=== PATIENT | male | born 1970 | race Caucasian/White ===

== ENCOUNTER 2017-08-23 15:21 | Emergency (ER) | payer MEDICARE ==
[~2017-08-23] VITALS: Ht 170.2 cm; Wt 86.2 kg
[~2017-08-23 15:21] MED LIST: ACE500 PO; ALBU8.5H12 IH; AMLO-96 PO; AMOX-559 PO; AMOX875T60 PO; AMPH10TA20 PO; AMPH30TA10 PO; AMPH5CAP9 PO; ARIP300S IM; ARIP5TAB28 PO; ASCO-191 PO; ASPI-715 PO; BEN5 PO; BENA1TAB57 PO; BUPR-474 PO; BUPXL150 PO; CAR100 PO; CAR200 PO; CEP500 PO; CEPH250C37 PO; CEPH500C24 PO; CHOL10005 PO; CHOLESTEROL MED PO; CLIN300C99 PO; CYAN50006 IM; CYCL10TA29 PO; DES100PT PO; DESV50TA9 PO; DOC100 PO; DOCU-416 PO; DOXY-181 PO; DULO60CA56 PO; EPIN0.3P3 IM; FAM20 PO; FERR325T3 PO; FLU100 PO; GEM600 PO; GEMF600T89 PO; HYDR-319 PO; HYDR-393 PO; HYDR-4305 PO; HYDR-4309 PO; HYDR12.558 PO; HYDR25 PO; HYDR28.426 TP; HYDR473S4 PO; IBU800 PO; IPRA4AER IH; LAMOT150PT PO; LEV500 PO; LISI-1 PO; LISI-355 PO; LITH600C6 PO; LOR5/325 PO; LURA60TA; MET10 PO; MET500 PO; METH36TA11 PO; MOXI400T28 PO; MULT-1210 PO; MULT-1335 PO; MULT-1367 PO; NOR5/325 PO; OMEP10CA38 PO; OXYC-689 PO; OXYC-763 PO; OXYC-823 PO; OXYC-865 PO; PAN40 PO; PANT40SU3 PO; PANT40TA65 PO; PER PO; PHENA200 PO; PRE20 PO; PRED-1 PO; PRED20TA6 PO; ROBC PO; SUC1 PO; TADA5TAB7 PO; TAM4 PO; TAMS0.4C25 PO; TAMS0.4C76 PO; TOPI25TA PO; TOPI25TA3 PO; VENL25TA29 PO; VIT B 1; VIT B12; VIVANZ; [UNRECOGNIZED DRUG - CODE] FT; [UNRECOGNIZED DRUG - CODE] GT; [UNRECOGNIZED DRUG - CODE] PO; [UNRECOGNIZED DRUG - OTHER]
[2017-08-23] MEDS ORDERED: IBUP-1671 PO (15:33)
--- NOTE | 2017-08-23 15:45 | ER Report ---
History and Physical Time Seen By MD: 15:44 Hx. of Stated Complaint: [facility] HAS HAD TARRY STOOL THIS PAST WEEK. BURNING IN ABD HPI/ROS CHIEF COMPLAINT: Rectal bleeding. HISTORY OF PRESENT ILLNESS: 46-year-old male patient presents to emergency room with complaint of rectal bleeding. Patient states for the past week he has been having black tarry stools. Patient states that he is noticed that he is feeling more fatigued over the past few days. He states he's had several bouts of vomiting as well. He states that he did call his primary care provider office today who stated that he should go to the emergency room for immediate evaluation. He states has not had any recent changes in his medications. He states that he is on several of her medications at this time. He denies having any fevers, chills. REVIEW OF SYSTEMS: Respiratory: No cough, no dyspnea. Cardiovascular: No chest pain, no palpitations. Gastrointestinal: As noted above Musculoskeletal: No back pain. Allergies: Coded Allergies: latex (Verified Allergy, Severe, RASH ITCHING, EYES SWELL, 08/23/17) Home Meds Active Scripts Sulfamethoxazole/Trimet 800-160 Mg Tab (BACTRIM DS TABLET) 1 Each Tablet, 1 TAB PO Q12H, #14 TAB Prov:VALENTINE MONTANO 08/23/17 Sucralfate (CARAFATE) 1 Gm Tablet, 1 GM PO QID, #60 TAB Take before meals and at bedtime. Crush the tablet and mix with water before taking. Prov:VALENTINE MONTANO 08/23/17 Pantoprazole Sodium (PANTOPRAZOLE SODIUM) 40 Mg Tablet.dr, 40 MG PO BID, #30 TAB.SR Prov:VALENTINE MONTANO 08/23/17 Epinephrine (EPINEPHRINE) 0.3 Mg/0.3 Ml Pen.injctr, 0.3 MG IM PRN Y for ALLERGY SYMPTOMS, #1 SYR 1 Refill Prov:CHARANJIT HERBERT MD 07/20/17 Tamsulosin Hcl (FLOMAX) 0.4 Mg Cap.er.24h, 0.4 MG PO BID, #60 CAP 3 Refills Prov:CHARANJIT HERBERT MD 05/30/17 Pantoprazole Sodium (PANTOPRAZOLE SODIUM) 40 Mg Tablet.dr, 1 TAB PO QDAY, #30 TAB.SR 0 Refills patient must see provider for further refills Prov:CHARANJIT HERBERT MD 02/25/17 Fenofibrate,Micronized (LOFIBRA) 67 Mg Capsule, 1 CAP PO QHS, #90 CAPSULE 4 Refills Prov:CHARANJIT HERBERT MD 09/27/16 Albuterol Sul Hfa 90 Mcg 8 Gm (VENTOLIN HFA 90 MCG 8 GM) 8.5 Gm Hfa.aer.ad, 2 PUFF IH Q4-6H Y for airway spasm, #1 INHALER Prov:CRISTYSHIRA M DO 04/27/15 Reported Medications Ibuprofen (MOTRIN IB) 200 Mg Tablet, 6-8 TAB PO Q6-8HDAILY 08/23/17 Cholecalciferol (Vitamin D3) (VITAMIN D3) 1,000 Unit Tablet, 1 TAB PO QDAY, TAB 04/28/16 Aripiprazole (ABILIFY MAINTENA) 300 Mg Suser.vial, 400 MG IM Q month 03/18/16 Bupropion Hcl (WELLBUTRIN XL) 300 Mg Tab.er.24h, 300 MG PO BID, TAB 03/18/16 Amphet Asp/Amphet/D-Amphet (ADDERALL 30 MG TABLET) 30 Mg Tablet, 30 MG PO BID 09/25/15 [place] Carbonate (LITHIUM CARBONATE) 600 Mg Capsule, 600 MG PO TID, CAPSULE TAKES 1 IN AM AND TWO AT HS 09/25/15 Cyanocobalamin (Vitamin B-12) (B-12) 5,000 Mcg/1 Ml Drops, 5000 MCG IM MONTH 04/27/15 Ascorbic Acid (VITAMIN C) 1,000 Mg Tablet, 1000 MG PO 09/24/13 Past Medical/Surgical History Patient has a past medical history of hypertension, hyperlipidemia, reflux, liver disease, testicular pain, kidney stones, acute renal failure, BPH, arthritis, tib-fib fracture, removal for objects from throat, recovering alcoholic, drug addict, bipolar, suicide attempt. Patient has a surgical history of gastric bypass, hernia repair, tib-fib surgery , back surgery, adenoidectomy. Patient has a family medical history of CAD, stroke, diabetes, psychiatric problems. Reviewed Nurses Notes: Yes Hx Smoking: Yes (1-2ppd) Smoking Status: Current: Every Day Smoker Exposure to Second Hand Smoke?: No Hx Substance Use Disorder: No (RECOVERING ACLOHOLIC & DRUG ADDICT SINCE 2004) Hx Alcohol Use: No Constitutional Vital Sign - Last 24 Hours 08/23/17 08/23/17 08/23/17 08/23/17 15:27 15:30 16:00 16:30 Temp 98.1 Pulse 78 Resp 20 B/P (MAP) 148/96 101/64 (76) 99/59 (72) 91/76 (81) Pulse Ox 98 O2 Delivery Room Air 08/23/17 17:00 B/P (MAP) 91/60 (70) Physical Exam General Appearance: The patient is alert, has no immediate need for airway protection and no current signs of toxicity. Respiratory: Chest is non tender, lungs are clear to auscultation. Cardiac: regular rate and rhythm Gastrointestinal: Abdomen is soft and non tender, no masses, bowel sounds normal. Musculoskeletal: Neck: Neck is supple and non tender. Extremities have full range of motion and are non tender. Skin: No rashes or lesions. DIFFERENTIAL DIAGNOSIS: After history and physical exam differential diagnosis was considered for GI bleed, anemia, hypovolemia. Medical Decision Making Data Points Result Diagram: 08/23/17 1629 08/23/17 1629 Laboratory Hematology Test 08/23/17 15:53 08/23/17 15:55 08/23/17 16:29 Stool Occult Blood (IFOB) Negative (NEGATIVE) Urine Color Yellow Urine Clarity Slightly-cloudy Urine pH 6.0 pH (4.8-9.5) Urine Specific [place] 1.018 Urine Protein 30 mg/dL (NEGATIVE) Urine Glucose (UA) Negative mg/dL (NEGATIVE) Urine Ketones Negative mg/dL (NEGATIVE) Urine Blood Negative (NEGATIVE) Urine Nitrite Negative (NEGATIVE) Urine Bilirubin Negative (NEGATIVE) Urine Urobilinogen Negative mg/dL (0.2-1.9) Urine Leukocyte Esterase Small (NEGATIVE) Urine RBC 1 /HPF (0-2/HPF) Urine WBC 5 /HPF (0-5/HPF) Urine Squamous Epithelial Cells None /LPF (</=FEW) Urine Bacteria Few /HPF (NONE-FEW) Urine Mucus Few /HPF (NONE-FEW) Red Blood Count 3.71 M/uL (4.00-5.60) Mean Corpuscular Volume 91.1 fL (80.0-96.0) Mean Corpuscular Hemoglobin 31.6 pg (26.0-33.0) Mean Corpuscular Hemoglobin Concent 34.7 g/dL (32.0-36.0) Red Cell Distribution Width 13.3 % (11.5-14.5) Mean Platelet Volume 6.8 fL (7.2-11.1) Neutrophils (%) (Auto) 70.6 % (39.4-72.5) Lymphocytes (%) (Auto) 19.9 % (17.6-49.6) Monocytes (%) (Auto) 5.1 % (4.1-12.4) Eosinophils (%) (Auto) 3.5 % (0.4-6.7) Basophils (%) (Auto) 0.9 % (0.3-1.4) Nucleated RBC Relative Count (auto) 0.0 /100WBC Neutrophils # (Auto) 7.8 K/uL (2.0-7.4) Lymphocytes # (Auto) 2.2 K/uL (1.3-3.6) Monocytes # (Auto) 0.6 K/uL (0.3-1.0) Eosinophils # (Auto) 0.4 K/uL (0.0-0.5) Basophils # (Auto) 0.1 K/uL (0.0-0.1) Nucleated RBC Absolute Count (auto) 0.00 K/uL Sodium Level 136 mmol/L (137-145) Potassium Level 3.8 mmol/L (3.5-5.0) Chloride Level 104 mmol/L (98-107) Carbon Dioxide Level 26 mmol/L (22-30) Blood Urea Nitrogen 23 mg/dl (9-21) Creatinine 0.90 mg/dl (0.66-1.25) Glomerular Filtration Rate Calc > 60.0 Random Glucose 83 mg/dl (75-110) Calcium Level 9.1 mg/dl (8.4-10.2) Total Bilirubin 0.3 mg/dl (0.2-1.3) Aspartate Amino Transf (AST/SGOT) 26 U/L (0-35) Alanine Aminotransferase (ALT/SGPT) 31 U/L (0-56) Alkaline Phosphatase 50 U/L (0-126) Total Protein 6.1 gm/dl (6.3-8.2) Albumin 3.6 g/dl (3.5-5.0) Amylase Level 72 U/L (0-110) Lipase 136 U/L (23-300) Chemistry Test 08/23/17 15:53 08/23/17 15:55 08/23/17 16:29 Stool Occult Blood (IFOB) Negative (NEGATIVE) Urine Color Yellow Urine Clarity Slightly-cloudy Urine pH 6.0 pH (4.8-9.5) Urine Specific [place] 1.018 Urine Protein 30 mg/dL (NEGATIVE) Urine Glucose (UA) Negative mg/dL (NEGATIVE) Urine Ketones Negative mg/dL (NEGATIVE) Urine Blood Negative (NEGATIVE) Urine Nitrite Negative (NEGATIVE) Urine Bilirubin Negative (NEGATIVE) Urine Urobilinogen Negative mg/dL (0.2-1.9) Urine Leukocyte Esterase Small (NEGATIVE) Urine RBC 1 /HPF (0-2/HPF) Urine WBC 5 /HPF (0-5/HPF) Urine Squamous Epithelial Cells None /LPF (</=FEW) Urine Bacteria Few /HPF (NONE-FEW) Urine Mucus Few /HPF (NONE-FEW) White Blood Count 11.1 k/uL (4.5-11.0) Red Blood Count 3.71 M/uL (4.00-5.60) Hemoglobin 11.7 g/dL (14.0-18.0) Hematocrit 33.8 % (42.0-52.0) Mean Corpuscular Volume 91.1 fL (80.0-96.0) Mean Corpuscular Hemoglobin 31.6 pg (26.0-33.0) Mean Corpuscular Hemoglobin Concent 34.7 g/dL (32.0-36.0) Red Cell Distribution Width 13.3 % (11.5-14.5) Platelet Count 301 K/uL (150-450) Mean Platelet Volume 6.8 fL (7.2-11.1) Neutrophils (%) (Auto) 70.6 % (39.4-72.5) Lymphocytes (%) (Auto) 19.9 % (17.6-49.6) Monocytes (%) (Auto) 5.1 % (4.1-12.4) Eosinophils (%) (Auto) 3.5 % (0.4-6.7) Basophils (%) (Auto) 0.9 % (0.3-1.4) Nucleated RBC Relative Count (auto) 0.0 /100WBC Neutrophils # (Auto) 7.8 K/uL (2.0-7.4) Lymphocytes # (Auto) 2.2 K/uL (1.3-3.6) Monocytes # (Auto) 0.6 K/uL (0.3-1.0) Eosinophils # (Auto) 0.4 K/uL (0.0-0.5) Basophils # (Auto) 0.1 K/uL (0.0-0.1) Nucleated RBC Absolute Count (auto) 0.00 K/uL Glomerular Filtration Rate Calc > 60.0 Calcium Level 9.1 mg/dl (8.4-10.2) Total Bilirubin 0.3 mg/dl (0.2-1.3) Aspartate Amino Transf (AST/SGOT) 26 U/L (0-35) Alanine Aminotransferase (ALT/SGPT) 31 U/L (0-56) Alkaline Phosphatase 50 U/L (0-126) Total Protein 6.1 gm/dl (6.3-8.2) Albumin 3.6 g/dl (3.5-5.0) Amylase Level 72 U/L (0-110) Lipase 136 U/L (23-300) Urinalysis Test 08/23/17 15:55 Urine Color Yellow Urine Clarity Slightly-cloudy Urine pH 6.0 pH (4.8-9.5) Urine Specific [place] 1.018 Urine Protein 30 mg/dL (NEGATIVE) Urine Glucose (UA) Negative mg/dL (NEGATIVE) Urine Ketones Negative mg/dL (NEGATIVE) Urine Blood Negative (NEGATIVE) Urine Nitrite Negative (NEGATIVE) Urine Bilirubin Negative (NEGATIVE) Urine Urobilinogen Negative mg/dL (0.2-1.9) Urine Leukocyte Esterase Small (NEGATIVE) Urine RBC 1 /HPF (0-2/HPF) Urine WBC 5 /HPF (0-5/HPF) Urine Squamous Epithelial Cells None /LPF (</=FEW) Urine Bacteria Few /HPF (NONE-FEW) Urine Mucus Few /HPF (NONE-FEW) EKG/Imaging Imaging EXAMINATION: AP abdomen HISTORY: Abdominal pain. COMPARISON: None. FINDINGS: Nonobstructive bowel gas pattern, with air scattered throughout normal-caliber loops of small bowel and colon. Moderate volume of scattered colonic stool. Surgical clips in the mid and upper left abdomen with mesh material along the lower abdominal wall. No evidence of organomegaly or abnormal calcification. Visualized lung bases are clear. No acute osseous findings. Surgical changes in the lower lumbar spine with prior L5 laminectomy. IMPRESSION: Nonobstructive bowel gas pattern, with a moderate volume of colonic stool. Report Dictated By: Melo Mccall MD at 08/23/2017 4:41 PM Report E-Signed By: Melo Mccall MD at 08/23/2017 4:44 PM ED Course/Re-evaluation ED Course Patient was admitted to exam room, history and physical were obtained. Differential diagnoses were considered. On examination patient had no abdominal tenderness, patient had a blood pressure 101/64. An IV was started, patient received a liter of normal saline, acute abdominal x-ray was done, a CBC, CMP, urinalysis, occult stool. Patient had an H&H of 11 and 33. It is down a little bit from his normal. Patient is normally running around 15. The occult stool was negative. A CMP was unremarkable. However the patient did have a positive urinalysis. He had 5 white cells per high-power field as well as leukocyte esterase. I discussed the findings with the patient and his . I did call and talk with Dr. Dickey, general surgeon to see about getting an appointment made. He was unable to see the patient tomorrow, however was able to make an appointment for Tuesday at 9. I discussed this with patient and his . We will go ahead and have him increase his Protonix to 40 mg twice a day, as well as 1 g of Carafate 4 times a day. We will also treat the urinary tract infection with Bactrim. An order was made for a urine culture. Patient will be discharged at this time. Decision to Disposition Date: Aug 23, 2017 Decision to Disposition Time: 17:17 Depart Departure Latest Vital Signs Vital Signs Date Time Temp Pulse Resp B/P (MAP) Pulse Ox O2 Delivery O2 Flow Rate FiO2 08/23/17 17:00 91/60 (70) 08/23/17 15:27 98.1 78 20 98 Room Air Impression: Primary Impression: GI bleed Additional Impression: UTI (urinary tract infection) Condition: Improved Disposition: HOME OR SELF-CARE Referrals: CHARANJIT HERBERT MD (PCP) New Scripts Sulfamethoxazole/Trimet 800-160 Mg Tab (BACTRIM DS TABLET) 1 Each Tablet 1 TAB PO Q12H, #14 TAB Prov: VALENTINE MONTANOP 08/23/17 Sucralfate (CARAFATE) 1 Gm Tablet 1 GM PO QID, #60 TAB Take before meals and at bedtime. Crush the tablet and mix with water before taking. Prov: VALENTINE MONTANO 08/23/17 Pantoprazole Sodium (PANTOPRAZOLE SODIUM) 40 Mg Tablet.dr 40 MG PO BID, #30 TAB.SR Prov: VALENTINE MONTANOP 08/23/17 Patient Instructions: Gastrointestinal Bleeding (ED) Additional Instructions: Increase fluid intake. Get plenty of rest. Follow up with Dr. Dickey, you have an appointment on Tuesday at 9:00. Don't take any Ibuprofen, Aleve or other NSAIDs. Return to the ER if condition worsens. Follow up with your primary care provider in the next week for repeat urinalysis. Problem Qualifiers Primary Impression: GI bleed GI bleed type/associated pathology: unspecified gastrointestinal hemorrhage type Qualified Codes: K92.2 - Gastrointestinal hemorrhage, unspecified Additional Impression: UTI (urinary tract infection) Urinary tract infection type: acute cystitis Hematuria presence: without hematuria Qualified Codes: N30.00 - Acute cystitis without hematuria VALENTINE MONTANO Aug 23, 2017 15:45
[2017-08-23] MEDS ORDERED: NS(*) 0.9% 1000 ML BAG 1,000 ML IV ONE (16:03)
[2017-08-23 16:45] LABS: PLATELET COUNT, AUTOMATED 301 K/uL (150-450)
--- NOTE | 2017-08-23 16:49 | RADIOLOGY IMAGING REPORT ---
FACILITY: [facility] - [place] PATIENT NAME: Boris Arriola : 1970 MR: [id number] V: [id number] EXAM DATE: ORDERING PHYSICIAN: VALENTINE MONTANO TECHNOLOGIST: Location: [facility] Patient: Boris Arriola : 1970 Visit/Account:[id number] Date of Sevice: 08/23/2017 EXAMINATION: AP abdomen HISTORY: Abdominal pain. COMPARISON: None. FINDINGS: Nonobstructive bowel gas pattern, with air scattered throughout normal-caliber loops of small bowel a nd colon. Moderate volume of scattered colonic stool. Surgical clips in the mid and upper left abdomen with mesh material along the lower abdominal wall. No evidence of organomegaly or abnormal calcification. Visualized lung bases are clear. No acute osseous findings. Surgical changes in the lower lumbar spine with prior L5 laminectomy. IMPRESSION: Nonobstructive bowel gas pattern, with a moderate volume of colonic stool. Report Dictated By: Melo Mccall MD at 08/23/2017 4:41 PM Report E-Signed By: Melo Mccall MD at 08/23/2017 4:44 PM [id number]
[2017-08-23 17:00] VITALS: BP 91/60
[2017-08-23] MEDS ORDERED: PANT40TA65 PO (17:16)
[2017-08-23] MEDS ORDERED: SUCR1TAB85 PO (17:16)
[2017-08-23] MEDS ORDERED: SULF-198 PO (17:25)
[2017-08-26] MEDS ORDERED: OXYC-854 PO (09:40)
[2017-08-26] MEDS ORDERED: SUCR1TAB85 PO (09:40)
[2017-08-26] MEDS ORDERED: PANT40TA65 PO (09:40)
[2017-08-26] MEDS ORDERED: GOLYTE PO (09:41)
== END 2017-08-23 17:30 | disposition home or self-care (01) ==
LOC: ER 15:34
DX: K92.2 Gastrointestinal hemorrhage, unspecified (principal); N30.00 Acute cystitis without hematuria
CPT/HCPCS: 74018; 81001; 82150; 82274; 83690; 85025; 99284; J7030; 82040; 82247; 82310; 82374; 82435; 82565; 82947; 84075; 84132; 84155; 84295; 84450; 84460; 84520

== ENCOUNTER 2017-09-07 04:08 | Day surgery (SDC) | payer MEDICARE ==
[~2017-09-07] VITALS: Ht 170.2 cm; Wt 87.1 kg
[~2017-09-07 04:08] MED LIST changes: +GOLYTE PO; +IBUP-1671 PO; +OXYC-854 PO; +SUCR1TAB85 PO; +SULF-198 PO
[2017-09-07] MEDS ORDERED: GLYCOPYRROLATE 1 MG/5 ML INJ IVP ONE (07:00)
[2017-09-07] MEDS ORDERED: LIDOCAINE MPF 1% 5 ML VIAL ONE (09:35)
[2017-09-07] MEDS ORDERED: PROPOFOL EMUL(*) 10MG/ML 20 ML 40 ML ONE (09:35)
[2017-09-07] MEDS ORDERED: PROPOFOL EMUL(*) 10MG/ML 20 ML 20 ML ONE (10:54)
[2017-09-07 11:05] VITALS: BP 110/66
[2017-09-07] MEDS ORDERED: MIDAZOLAM 2 MG/2 ML VIAL IVP PRN (12:00)
[2017-09-07] MEDS ORDERED: NORMOSOL R SOLN(*) 1000 ML BAG 1,000 ML IV PRN (12:00)
[2017-09-07] MEDS ORDERED: LIDOCAINE/SOD BICARB 8.4% SYR ID ONE (12:00)
[2017-09-07 12:23] VITALS: BP 101/57
[2017-09-07 12:30] VITALS: BP 101/55
--- NOTE | 2017-09-07 12:34 | Short(Outpt) Discharge Summary ---
Discharge Summary Reason for Hosp/Final Diag: (1) GI bleed Status: Chronic Hospital Course & Plan: EGD with biopsies and colonoscopy completed without problems although his bowel prep was unacceptably poor. (2) History of ulcer disease Status: Chronic Departure Discharge to: Home, Self Care Discharge Instructions Home Meds Active Scripts Peg/Electrolytes (GOLYTELY SOLUTION) 4,000 Ml Soln, 1 GAL PO ONCE, #1 GAL 0 Refills Prov:CHERYL IZQUIERDO MD 08/26/17 Oxycodone Hcl/Acet 5/325 Mg (ENDOCET 5-325 TABLET) 1 Each Tablet, 1-2 TAB PO Q4H Y for PAIN, #40 TAB 0 Refills Prov:CHERYL IZQUIERDO MD 08/26/17 Sucralfate (CARAFATE) 1 Gm Tablet, 1 TAB PO ACHS, #60 TAB Take before meals and at bedtime. Crush the tablet and mix with water before taking. Prov:CHERYL IZQUIERDO MD 08/26/17 Pantoprazole Sodium (PANTOPRAZOLE SODIUM) 40 Mg Tablet.dr, 1 TAB PO BIDAC, #60 TAB.SR 4 Refills Don't eat 2 hours before or 30 minutes after taking Prov:CHERYL IZQUIERDO MD 08/26/17 Sulfamethoxazole/Trimet 800-160 Mg Tab (BACTRIM DS TABLET) 1 Each Tablet, 1 TAB PO Q12H, #14 TAB Prov:VALENTINE MONTANO 08/23/17 Epinephrine (EPINEPHRINE) 0.3 Mg/0.3 Ml Pen.injctr, 0.3 MG IM PRN Y for ALLERGY SYMPTOMS, #1 SYR 1 Refill Prov:CHARANJIT HERBERT MD 07/20/17 Tamsulosin Hcl (FLOMAX) 0.4 Mg Cap.er.24h, 0.4 MG PO BID, #60 CAP 3 Refills Prov:CHARANJIT HERBERT MD 05/30/17 Fenofibrate,Micronized (LOFIBRA) 67 Mg Capsule, 1 CAP PO QHS, #90 CAPSULE 4 Refills Prov:CHARANJIT HERBERT MD 09/27/16 Albuterol Sul Hfa 90 Mcg 8 Gm (VENTOLIN HFA 90 MCG 8 GM) 8.5 Gm Hfa.aer.ad, 2 PUFF IH Q4-6H Y for airway spasm, #1 INHALER Prov:SHIRA MUNIZ DO 04/27/15 Reported Medications Cholecalciferol (Vitamin D3) (VITAMIN D3) 1,000 Unit Tablet, 1 TAB PO QDAY, TAB 04/28/16 Aripiprazole (ABILIFY MAINTENA) 300 Mg Suser.vial, 400 MG IM Q month 03/18/16 Bupropion Hcl (WELLBUTRIN XL) 300 Mg Tab.er.24h, 300 MG PO BID, TAB 03/18/16 Amphet Asp/Amphet/D-Amphet (ADDERALL 30 MG TABLET) 30 Mg Tablet, 30 MG PO BID 09/25/15 [place] Carbonate (LITHIUM CARBONATE) 600 Mg Capsule, 600 MG PO TID, CAPSULE TAKES 1 IN AM AND TWO AT HS 09/25/15 Ascorbic Acid (VITAMIN C) 1,000 Mg Tablet, 1000 MG PO 09/24/13 Discontinued Reported Medications Cyanocobalamin (Vitamin B-12) (B-12) 5,000 Mcg/1 Ml Drops, 5000 MCG IM MONTH 04/27/15 Follow up Referrals: General Surgery - In Two Weeks @ Surgery, General with Cheryl Izquierdo Md Diet: Regular Activity: As Tolerated Special Instructions: Your upper endoscopy and colonoscopy were completed without any problems but your colon prep was not good and I couldn't see the lining of your colon very well due to the amount of stool that remained in your colon. There was no blood in your esophagus, stomach, jejunum, or colon. Radha, my nurse kira call you in the next couple of days to schedule a follow up appointment. Problem Qualifiers (1) GI bleed: GI bleed type/associated pathology: unspecified gastrointestinal hemorrhage type Qualified Codes: K92.2 - Gastrointestinal hemorrhage, unspecified CHERYL IZQUIERDO MD Sep 07, 2017 12:34
[2017-09-07 12:59] VITALS: BP 93/66
[2017-09-07 13:00] VITALS: BP 100/62
[2017-09-07 13:03] VITALS: BP 106/64
== END 2017-09-07 13:20 | disposition home or self-care (01) ==
LOC: OR 04:08
PROVIDERS: ATTEND Surgery
DX: R04.2 Hemoptysis (principal); R10.13 Epigastric pain; R10.84 Generalized abdominal pain; K92.1 Melena
CPT/HCPCS: 43239; 45378; 87077; J2001; J2704; J3490

== ENCOUNTER → 2018-01-05 | Outpatient (CLI) | payer MEDICARE ==
[~2018-01-05] MED LIST changes: -BEN5 PO; +BENZ0.5T19 PO
[2018-01-05 10:12] LABS: LDL CHOLESTEROL 70 mg/dl
== END ==
LOC: LAB 09:44
PROVIDERS: ATTEND Clinical Nurse Specialist Family Health
DX: Z13.1 Encounter for screening for diabetes mellitus (principal)
CPT/HCPCS: 36415; 82040; 82247; 82310; 82374; 82435; 82465; 82565; 82947; 83036; 83718; 84075; 84132; 84155; 84295; 84450; 84460; 84478; 84520

== ENCOUNTER → 2018-02-14 | Outpatient (CLI) | payer OTHER, MEDICARE ==
[~2018-02-14] MED LIST changes: +FENO67CA3 PO
--- NOTE | 2018-02-14 15:27 | RADIOLOGY IMAGING REPORT ---
FACILITY: [facility] - [place] PATIENT NAME: Boris Arriola : 1970 MR: [id number] V: [id number] EXAM DATE: ORDERING PHYSICIAN: IGOR HAYES TECHNOLOGIST: Location: [facility] [place] Patient: Boris Arriola : 1970 Visit/Account:[id number] Date of Sevice: 02/14/2018 EXAMINATION: MRI Lumbar spine without intravenous contrast HISTORY: Low back pain radiating into the right leg. COMPARISON: 04/28/2017. TECHNIQUE: Multi-planar, multi-sequence lumbar spine MRI was performed without intravenous contrast administration. FINDINGS: Alignment: Stable anterior listhesis of L4 over L5 measuring 5 mm. Stable minimal retrolisthesis of L 3 over L4. Vertebral marrow signal: Stable Schmorl's node in the superior L1 vertebral body. Otherwise negative. Distal thoracic cord: Negative. Conus: negative, terminates at L1-L2 Cauda equina: Negative. Paravertebral soft tissues: Postsurgical changes. Otherwise negative. Visualized abdominal and pelvic structures: Negative. Disc Spaces: Lower thoracic spine: Mild degenerative changes with no significant stenosis. No significant change. L1-2: Mild circumferential disc bulge with no significant stenosis. No significant interval change. L2-3: Minimal disc bulge with no significant stenosis. No significant change. L3-4: Circumferential disc bulge and facet hypertrophy with mild spinal canal stenosis and mild to mo derate bilateral neural foraminal stenosis. No significant change. L4-5: 5 mm of anterior listhesis. Circumferential disc bulge, facet hypertrophy, and ligamentum flavu m thickening. Bilateral facet joint effusion. Moderate spinal canal stenosis. Moderately severe bilat eral neural foraminal stenosis. No significant change. L5-S1: Laminectomy. Mild circumferential disc bulge. No significant stenosis. No significant change. IMPRESSION: Multilevel degenerative disc disease and facet hypertrophy with postsurgical changes at L 5-S1. No significant change compared with 04/28/2017. Please see above report for level by level descri ption. Report Dictated By: Salvador Damian MD at 02/14/2018 3:18 PM Report E-Signed By: Salvador Damian MD at 02/14/2018 3:24 PM WSN:[id number]
== END ==
LOC: MRI 01-10 00:07
PROVIDERS: ATTEND Clinical Nurse Specialist Family Health
DX: M51.37 Other intervertebral disc degeneration, lumbosacral region (principal); Z98.890 Other specified postprocedural states
CPT/HCPCS: 72148

== ENCOUNTER 2018-08-19 18:26 | Emergency (ER) | payer MEDICARE ==
[~2018-08-19 18:26] MED LIST changes: +AMLO-111 PO; -AMLO-96 PO; -HYDR-4305 PO; -HYDR-4309 PO; +HYDR-627 PO; +HYDR-653 PO; +NYST100016 PO; +TAMS0.4C70 PO; +TRET45CR28 TP
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
[2018-08-19 18:34] VITALS: BP 155/94
[2018-08-19] MEDS ORDERED: NS(*) 0.9% 1000 ML BAG 1,000 ML IV ONE (18:45)
[2018-08-19] MEDS ORDERED: KETOROLAC 30 MG/ML VIAL IVP ONE (18:45)
[2018-08-19] MEDS ORDERED: IOPAMIDOL 76% 75 ML INFUS BTL 75 ML ONE (19:03)
[2018-08-19 19:04] LABS: PLATELET COUNT, AUTOMATED 357 K/uL (150-450)
--- NOTE | 2018-08-19 19:47 | RADIOLOGY IMAGING REPORT ---
FACILITY: [facility] PATIENT NAME: Boris Arriola : 1970 MR: [id number] V: EXAM DATE: ORDERING PHYSICIAN: KENNY MATA TECHNOLOGIST: Location: [facility] [place] Patient: Boris Arriola : 1970 Visit/Account:[id number] Date of Sevice: 08/19/2018 ADDENDUM #1 There is a small right para midline ventral supraumbilical hernia containing fat and trace amount of fluid measuring 2.7 x 1.9 x 3.3 cm which is increased in size from prior, previously measuring approx imately 1 cm. Report Dictated By: Paolo Wahl MD at 08/19/2018 7:46 PM Report E-Signed By: Paolo Wahl MD at 08/19/2018 7:47 PM ORIGINAL REPORT CHEST/AB/PELV W/CONTRAST HISTORY: Trauma TECHNIQUE: CT imaging was obtained through the chest, abdomen and pelvis with intravenous contrast. One of the following dose optimization techniques was utilized in the performance of this exam: autom ated exposure control; adjustment of the mA and/or kv according to patient size; or use of iterative reconstruction technique. Specific details can be referenced in the facility's radiology CT exam oper ational policy. CONTRAST: 75 cc of Isovue-370 COMPARISON: CT chest abdomen and pelvis 09/30/2015 FINDINGS: CHEST: Lower neck: Negative. Vessels: Negative. Heart and pericardium: Negative Mediastinum/hilum/lymph nodes: Negative. Lungs/pleura: Trace right pleural effusion. Mild bibasilar subsegmental atelectasis. No pneumothorax . Bones/soft tissues: Nondisplaced fracture of the right posterior 12th rib. Nondisplaced fracture of the right lateral ninth subtle contour abnormality of the right lateral 10th rib Other findings: None significant ABDOMEN/PELVIS: Hepatobiliary: No evidence of hepatic injury. No perihepatic fluid. Spleen: Negative. Adrenals: Negative. Pancreas: Negative. Kidneys/ureters/bladder: Negative. Bowel/peritoneum/mesentery: Rick-en-Y gastric bypass. No bowel obstruction or ascites. Vessels: Negative. Lymph nodes: Negative. Pelvic genitourinary: Negative. Bones/soft tissues: Extensive edema within the right flank with ill-defined hematoma at the margin o f the right gluteus lindy muscle. There is new 3 mm of anterolisthesis at L4-L5 with severe facet arthropathy. Postoperative changes from laminectomy at L5. Other findings: None significant IMPRESSION: 1. Imaging the chest reveals a trace right pleural effusion with mild bibasilar subsegmental atelecta sis. No pneumothorax. 2. Imaging of the bones reveals nondisplaced fractures of the right ninth, 10th and 12th ribs. 3. Imaging the abdomen and pelvis reveals no evidence of traumatic injury to the abdominal organs or free fluid. 4. Imaging the soft tissues reveals extensive edema within the right flank with ill-defined hematoma at the margin of the right gluteus musculature. 5. There is new 3 mm of anterolisthesis at L4-L5 with severe facet arthropathy Report Dictated By: Paolo Wahl MD at 08/19/2018 7:29 PM Report E-Signed By: Paolo Wahl MD at 08/19/2018 7:44 PM WSN:[id number]
[2018-08-19] MEDS ORDERED: LIDOCAINE 5% PATCH TP SCH (19:55)
[2018-08-19] MEDS ORDERED: oxyCODONE/ACETAMIN 5/325MG TH 2 TAB/BOTTLE PO ONE (19:55)
[2018-08-19] MEDS ORDERED: LIDO700A19 TD (19:59)
[2018-08-19] MEDS ORDERED: LOR5/325 PO (19:59)
[2018-08-19] MEDS ORDERED: PATCH REMOVAL 1 EA TOP SCH (21:00)
== END 2018-08-19 20:07 | disposition home or self-care (01) ==
LOC: ER 18:30
DX: S22.41XA Multiple fractures of ribs, right side, initial encounter for closed fracture (principal); S30.1XXA Contusion of abdominal wall, initial encounter; V86.52XA Driver of snowmobile injured in nontraffic accident, initial encounter
CPT/HCPCS: 71260; 74177; 81001; 83690; 85025; 96361; 96374; 99284; A9270; J1885; J7030; Q9967; 82040; 82247; 82310; 82374; 82435; 82565; 82947; 84075; 84132; 84155; 84295; 84450; 84460; 84520

== ENCOUNTER → 2018-09-19 | Outpatient (CLI) | payer MEDICARE ==
[~2018-09-19] MED LIST changes: -AMLO-111 PO; +AMLO-125 PO; +LIDO700A19 TD
== END ==
LOC: LAB 08:57
PROVIDERS: ATTEND Nurse Practitioner Psychiatric/Mental Health
DX: Z51.81 Encounter for therapeutic drug level monitoring (principal); R53.83 Other fatigue; Z79.899 Other long term (current) drug therapy
CPT/HCPCS: 36415; 80178; 82040; 82247; 82306; 82310; 82374; 82435; 82465; 82565; 82947; 83036; 83718; 84075; 84132; 84155; 84295; 84439; 84443; 84450; 84460; 84478; 84520; 85027

== ENCOUNTER → 2018-10-26 | Outpatient (CLI) | payer MEDICARE | LOC: LAB 17:11 | PROVIDERS: ATTEND Nurse Practitioner Psychiatric/Mental Health | DX: R94.6 Abnormal results of thyroid function studies (principal) | CPT/HCPCS: 36415; 84439; 84443; 84480 ==

== ENCOUNTER 2018-12-09 15:57 | Emergency (ER) | payer MEDICARE ==
--- NOTE | 2018-12-09 16:00 | ER Report ---
History and Physical Time Seen By MD: 16:00 HPI/ROS CHIEF COMPLAINT: Upper lip laceration HISTORY OF PRESENT ILLNESS: Patient is a 48-year-old male here with complaints of upper lip laceration superior to the vermilion border approximately 3.5 cm in length communicating with the inner gingival mucosa. Patient reports that he was using a concrete grinding wheel which projectile but slab of material became lodged in his lip which he had removed prior to arrival. Patient denies further injury at this time. Tetanus is not up-to-date. REVIEW OF SYSTEMS: Constitutional: No fever, no chills. Eyes: No discharge. ENT: + For similar laceration superior to the vermilion border of the upper lip communicating with the gingival mucosa in the upper mouth Cardiovascular: No chest pain, no palpitations. Respiratory: No cough, no shortness of breath. Gastrointestinal: No abdominal pain, no vomiting. Genitourinary: No hematuria. Musculoskeletal: No back pain. Skin: 4 cm linear laceration superior to the vermilion border of the upper lip Neurological: No headache. No focal neurological deficit Allergies: Coded Allergies: latex (Verified Allergy, Severe, RASH ITCHING, EYES SWELL, 12/09/18) Home Meds Active Scripts Tramadol Hcl (TRAMADOL HCL) 50 Mg Tablet, 50 MG PO Q6H PRN for PAIN, #12 TAB 0 Refills Prov:KENNY MATA DO 12/09/18 Chlorhexidine Gluconate (PERIOGARD) 473 Ml Mouthwash, 473 ML MM QID for 10 Days, #1 BOTTLE Prov:KENNY MATA DO 12/09/18 Amoxicillin/Pot Clav 875-125 Mg Tab (AUGMENTIN 875-125 TABLET) 1 Each Tablet, 1 TAB PO Q12H for 7 Days, #14 TAB Prov:KENNY MATA DO 12/09/18 Lidocaine (Lidocaine) 5 % Adh..patch, 1 PATCH TD Q8H, #20 ADH.PATCH Prov:KENNY MATA DO 08/19/18 Hydrocodone Bit/Acetaminophen (HYDROCODON-ACETAMINOPHEN 5-325) 1 Each Tablet, 1 EACH PO Q4H PRN for PAIN, #12 TAB 0 Refills Prov:KENNY MATA DO 08/19/18 Fenofibrate,Micronized (FENOFIBRATE) 67 Mg Capsule, 67 MG PO HS, #90 CAPSULE 1 Refill Prov:CHARANJIT HERBERT MD 07/26/18 Pantoprazole Sodium (PANTOPRAZOLE SODIUM) 40 Mg Tablet.dr, 1 TAB PO QDAY, #60 TAB.SR 4 Refills Take 1 tablet first thing every morning on an empty stomach and wait 30 minutes before eating. Prov:CHERYL IZQUIERDO MD 04/07/18 Tamsulosin Hcl (TAMSULOSIN HCL) 0.4 Mg Cap.er.24h, 0.4 MG PO QHS, #90 CAP 2 R efills Prov:CHARANJIT HERBERT MD 04/03/18 Nystatin (Nystatin) 100,000 Unit/Ml Oral.susp, 5 ML PO QID, #300 ML Prov:CHARANJIT HERBERT MD 03/08/18 Tretinoin 0.1% Top Cream (RETIN-A 0.1% TOP CREAM) 45 Gm Cream..g., 45 GM TP QHS, #45 TU 3 Refills Prov:CHARANJIT HERBERT MD 03/08/18 Oxycodone Hcl/Acet 5/325 Mg (ENDOCET 5-325 TABLET) 1 Each Tablet, 1-2 TAB PO Q4H PRN for PAIN, #40 TAB 0 Refills Prov:CHERYL IZQUIERDO MD 08/26/17 Sucralfate (CARAFATE) 1 Gm Tablet, 1 TAB PO ACHS, #60 TAB Take before meals and at bedtime. Crush the tablet and mix with water before taking. Prov:CHERYL IZQUIERDO MD 08/26/17 Sulfamethoxazole/Trimet 800-160 Mg Tab (BACTRIM DS TABLET) 1 Each Tablet, 1 TAB PO Q12H, #14 TAB Prov:VALENTINE MONTANO 08/23/17 Epinephrine (EPINEPHRINE) 0.3 Mg/0.3 Ml Pen.injctr, 0.3 MG IM PRN PRN for ALLERGY SYMPTOMS, #1 SYR 1 Refill Prov:CHARANJIT HERBERT MD 07/20/17 Albuterol Sul Hfa 90 Mcg 8 Gm (VENTOLIN HFA 90 MCG 8 GM) 8.5 Gm Hfa.aer.ad, 2 PUFF IH Q4-6H PRN for airway spasm, #1 INHALER Prov:SHIRA MUNIZ DO 04/27/15 Reported Medications Cholecalciferol (Vitamin D3) (VITAMIN D3) 1,000 Unit Tablet, 1 TAB PO QDAY, TAB 04/28/16 Aripiprazole (ABILIFY MAINTENA) 300 Mg Suser.vial, 400 MG IM Q month 03/18/16 Bupropion Hcl (WELLBUTRIN XL) 300 Mg Tab.er.24h, 300 MG PO BID, TAB 03/18/16 Amphet Asp/Amphet/D-Amphet (ADDERALL 30 MG TABLET) 30 Mg Tablet, 30 MG PO BID 09/25/15 [place] Carbonate (LITHIUM CARBONATE) 600 Mg Capsule, 600 MG PO TID, CAPSULE TAKES 1 IN AM AND TWO AT HS 09/25/15 Ascorbic Acid (VITAMIN C) 1,000 Mg Tablet, 1000 MG PO 09/24/13 Hx Smoking: No (QUIT 06/2017) Smoking Status: Current: Every Day Smoker, Former Smoker Exposure to Second Hand Smoke?: No Hx Substance Use Disorder: No (RECOVERING ACLOHOLIC & DRUG ADDICT SINCE 2004) Hx Alcohol Use: No Constitutional Vital Sign - Last 24 Hours 12/09/18 16:02 Temp 98.6 Pulse 66 Resp 12 B/P (MAP) 136/85 Pulse Ox 92 O2 Delivery Room Air Physical Exam General Appearance: The patient is alert, has no immediate need for airway protection and no signs of toxicity. NAD Eyes: Pupils equal and round no pallor or injection. ENT, Mouth: + 4 cm linear laceration superior to the upper lip vermelian border, communicating with gingival mucosa of the upper mouth Respiratory: There are no retractions, lungs are clear to auscultation. Cardiovascular: Regular rate and rhythm. Gastrointestinal: Abdomen is soft and non tender, no masses, bowel sounds normal. Neurological: No focal neuro deficits Skin: Warm and dry, no rashes. + 3-4 cm laceration superior to the upper vermilian border Musculoskeletal: Neck is supple non tender. Extremities are nontender, nonswollen and have full range of motion. DIFFERENTIAL DIAGNOSIS: After history and physical exam differential diagnosis was considered for laceration, fracture, foreign body retained Medical Decision Making ED Course/Re-evaluation ED Course Patient is a 48-year-old male here with complaints of a 3.5 approximately cm laceration just superior to the Vermillian Border of the upper lip. Upon further inspection, there was communication directly into the gingival mucosa at the base of the upper teeth in the midline with coinciding laceration. The communicating channel was thoroughly irrigated using sterile saline and all foreign bodies were removed. I closed the inner passage using 5 absorbable Vicryl sutures 4-0. The opening approximated well and the laceration was closed successfully with or bleeding present. The outer opening up of the upper lip was closed using 5 x 4-0 Ethilon sutures with good approximation. The sutures in both passages were placed after approximately 2.5 cc of 1% lidocaine with epinephrine was instilled for local anesthetic. Patient tolerated procedure well, hemostasis was achieved. Patient was updated on his tetanus immunization. Recommend 7-10 day removal of external sutures 5. Recommend following up with dentistry in order to further examine the laceration repair and progress of healing. Patient was given prescription for chlorhexidine mouth rinse as well as a seven-day course of Augmentin due to the initial open nature of the passage. Return precautions provided. Recommend Dentistry, [facility] or PCP follow-up. Procedure a 3.5 approximately cm laceration just superior to the Vermillian Border of the upper lip. Upon further inspection, there was communication directly into the gingival mucosa at the base of the upper teeth in the midline with coinciding laceration. The communicating channel was thoroughly irrigated using sterile saline and all foreign bodies were removed. I closed the inner passage using 5 absorbable Vicryl sutures 4-0. The opening approximated well and the laceration was closed successfully with or bleeding present. The outer opening up of the upper lip was closed using 5 x 4-0 Ethilon sutures with good approximation. The sutures in both passages were placed after approximately 2.5 cc of 1% lidocaine with epinephrine was instilled for local anesthetic. Patient tolerated procedure well, hemostasis was achieved. Patient was updated on his tetanus immunization. Recommend 7-10 day removal of external sutures 5. Decision to Disposition Date: Dec 09, 2018 Decision to Disposition Time: 17:18 Depart Departure Latest Vital Signs Vital Signs Date Time Temp Pulse Resp B/P (MAP) Pulse Ox O2 Delivery O2 Flow Rate FiO2 12/09/18 16:02 98.6 66 12 136/85 92 Room Air Impression: Primary Impression: Facial laceration Additional Impression: Laceration of gingiva Condition: Improved Disposition: HOME OR SELF-CARE Referrals: CHARANJIT HERBERT MD (PCP) New Scripts Tramadol Hcl (TRAMADOL HCL) 50 Mg Tablet 50 MG PO Q6H PRN for PAIN, #12 TAB 0 Refills Prov: KENNY MATA 12/09/18 Chlorhexidine Gluconate (PERIOGARD) 473 Ml Mouthwash 473 ML MM QID for 10 Days, #1 BOTTLE Prov: KENNY MATA DO 12/09/18 Amoxicillin/Pot Clav 875-125 Mg Tab (AUGMENTIN 875-125 TABLET) 1 Each Tablet 1 TAB PO Q12H for 7 Days, #14 TAB Prov: KENNY MATA DO 12/09/18 Patient Instructions: Facial Laceration (ED) Additional Instructions: Please have sutures removed in 7-10 days, 5 sutures are present in the external passage of the facial laceration. 5 absorbable sutures were used to close the internal gingival laceration. Please rinse your mouth using chlorhexidine oral rinse 3-4 times daily in order to help to eliminate bacteria from infiltrating the wound repair. Please take Augmentin 1 tablet twice daily for 7 days for antimicrobial prophylaxis. Please return promptly if you develop increased swelling, drainage, fevers, facial swelling, difficulty swallowing or difficulty breathing. Please follow-up with dentistry in the next week or oral surgery as well as your primary care provider in order to evaluate for proper healing. You may take NSAIDs such as naproxen, ibuprofen as needed for pain control and swelling, apply ice packs as needed for swelling control. You may take tramadol 1 tablet every 6-8 hours as needed for breakthrough pain control. Problem Qualifiers KENNY MATA Dec 09, 2018 16:00
[2018-12-09 16:02] VITALS: BP 136/85
[2018-12-09] MEDS ORDERED: DIPHTH/TETANUS/ACEL. PERTUSSIS IM ONLY ONE (16:35)
[2018-12-09] MEDS ORDERED: AMOX-559 PO (17:24)
[2018-12-09] MEDS ORDERED: TRAM-420 PO (17:24)
[2018-12-09] MEDS ORDERED: CHLO473M12 MM (17:24)
== END 2018-12-09 17:31 | disposition home or self-care (01) ==
LOC: ER 16:01
DX: S01.511A Laceration without foreign body of lip, initial encounter (principal); S01.512A Laceration without foreign body of oral cavity, initial encounter; W45.8XXA Other foreign body or object entering through skin, initial encounter
CPT/HCPCS: 90471; 90715; 99283